=== PATIENT | female | born 1965 | race Caucasian/White ===

== ENCOUNTER 2018-01-29 08:24 | Outpatient (CLI) | payer BC ==
--- NOTE | 2018-01-29 09:46 | RAD ---
CERVICAL SPINE SERIES THREE VIEWS: History: Neck pain. FINDINGS: The vertebral bodies are normal in height. There are degenerative osteophytes along the course of the spine. There is straightening to the normal cervical curve. There is degenerative disc narrowing at C4-5 and C5-6. Mild degenerative facet changes are noted. No soft tissue swelling. Small cervical rib s are incidentally noted. 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 POS: C
== END 2018-01-29 08:25 | disposition home or self-care (01) ==
LOC: BICRAD 08:24
PROVIDERS: ATTEND Chiropractor
DX: M54.2 Cervicalgia (principal); M47.812 Spondylosis without myelopathy or radiculopathy, cervical region
CPT/HCPCS: 72040